=== PATIENT | male | born 1945 | race Caucasian/White ===

== ENCOUNTER 2019-03-07 20:44 | Emergency (ER) | payer OTHER ==
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
== END 2019-03-07 21:50 | disposition home or self-care (01) ==
LOC: ER 20:44
DX: T24.231A Burn of second degree of right lower leg, initial encounter (principal); X16.XXXA Contact with hot heating appliances, radiators and pipes, initial encounter; I10 Essential (primary) hypertension

== ENCOUNTER 2019-06-27 17:16 | Emergency (ER) | payer OTHER ==
--- OUTSIDE RECORDS SUMMARY | 2019-06-27 17:18 | XMS REPORT ---
:1945 [facility] Address [address] [place] [address] [place] [id number] Care Team Providers Name Role Phone Unavailable Unavailable Unavailable Problems This patient has no known problems. Allergies, Adverse Reactions, Alerts This patient has no known allergies or adverse reactions. Medications This patient has no known medications. Encounters Start End Encounter Admission Attending Care Care Encounter Date/Time Date/Time Type Type Clinicians Facility Department ID 2019-06-15 Outpatient [facility] [id number] 14:43:47 2019-05-17 2019-05-17 Inpatient E [facility]SE MED [id number] 13:44:00 09:27:00 2019-03-13 2019-03-13 Emergency E [facility]NE MHNE [id number] 10:59:00 10:59:00
[2019-06-27] MEDS ORDERED: NA CHLORIDE 0.9% 2,000 ML ONE (18:07)
[2019-06-27 18:25] LABS: Absolute Lymphocytes (CBC) 0.4 K/uL (0.7-4.9); Basophils % 0.6 % (0-1.3); Hematocrit 33.6 % (39.6-49.0); Lymphocytes % 4.5 % (15.3-44.8); MPV 7.5 fL (7.6-11.3); RBC Red Blood Cell Count 3.91 M/uL (4.33-5.43)
[2019-06-27 18:32] LABS: Protime INR 1.26
--- NOTE | 2019-06-27 18:33 | EKG ---
Test Date: 2019-06-27 Test Time: 17:38:06 Correctional Corporal: MICHELLE MEASUREMENT RESULTS: Intervals: Rate: 135 WY: 136 QRSD: 68 QT: 292 QTc: 438 [place]: P: 53 WY: 136 QRS: 24 T: 44 INTERPRETIVE STATEMENTS: Sinus tachycardia Otherwise normal ECG No previous ECG available for comparison Electronically Signed On 06-27-19 18:32:45 [facility] by Nish Roland
[2019-06-27 18:42] LABS: ALT/SGPT 31 U/L (12-78); AST/SGOT 72 U/L (15-37); Alkaline Phosphatase 155 U/L (45-117); BUN Blood Urea Nitrogen 11 mg/dL (7-18); Bicarbonate 29 mmol/L (21-32); Bilirubin Total 2.1 mg/dL (0.2-1.0); CKMB Creatine Kinase MB 1.9 ng/mL (0.3-3.6); Creatine Phosphokinase 283 U/L (39-308); Glucose Level 117 mg/dL (74-106); Lipase 107 U/L (73-393); Potassium 3.1 mmol/L (3.5-5.1); Protein, Total 6.9 g/dL (6.4-8.2); Sodium Level 134 mmol/L (136-145); Troponin (Emerg Dept Use Only) < 0.02 ng/mL (0.0-0.045)
[2019-06-27 18:47] LABS: Urine Bacteria <20 /HPF (NONE SEEN); Urine Culture Reflex Order NOT NEEDED; Urine Mucus 1+ /HPF (NONE SEEN); Urine RBC <5 /HPF (NONE SEEN)
[2019-06-27] MEDS ORDERED: ACETAMINOPHEN 650MG/RECT SUPP PR ONE (18:55)
[2019-06-27 18:56] LABS: Urine Blood NEGATIVE (NEG); Urine Glucose NEGATIVE (NEG); Urine Protein NEGATIVE (NEG); Urine Specific Gravity 1.015 (1.005-1.030)
--- NOTE | 2019-06-27 19:05 | RAD REPORT ---
EXAM DESCRIPTION: Loretta Single View06/27/2019 6:07 pm CLINICAL HISTORY: fever COMPARISON: none FINDINGS: The lungs appear clear of acute infiltrate. The heart is normal size IMPRESSION: No acute abnormalities displayed
[2019-06-27 19:18] LABS: Blood Morphology Comment NOT SEEN (NOT SEEN); Platelet Estimate DECR; Urine White Blood Cell Casts OK
[2019-06-27] MEDS ORDERED: NA CHLORIDE 0.9% 250 ML ONE (19:31)
[2019-06-27] MEDS ORDERED: VANCOMYCIN 1 GM/VIAL ONE (19:31)
[2019-06-27] MEDS ORDERED: CEFEPIME 1 GM/100 ML BAG IV ONE (19:31)
--- NOTE | 2019-06-27 19:41 | RAD REPORT ---
EXAM DESCRIPTION: CT - Head Brain Wo Cont - 06/27/2019 7:18 pm CLINICAL HISTORY: Alteration of awareness/confusion COMPARISON: None TECHNIQUE: Computed axial tomography of the head was obtained. IV contrast was not requested. All CT scans are performed using dose optimization technique as appropriate and may include automated exposure control or mA/KV adjustment according to patient size. FINDINGS: An intracranial bleed is not seen . The ventricles are normal in caliber. No extra-axial fluid collection is noted. . Fluid within the sinuses/ mastoids is not seen. IMPRESSION: No acute intracranial abnormality is seen. If patient's symptoms persist MRI of the bra in would be recommended.
--- NOTE | 2019-06-27 23:43 | ER ---
Nurse's Notes [facility] Name: Suleiman Mendoza Age: 73 yrs Sex: Male : 1945 Arrival Date: 06/27/2019 Time: 17:33 Bed 16 Private MD: Diagnosis: Other specified sepsis;Pneumonia due to other specified bacteria;Alcoholic cirrhosis of liver with ascites;Altered mental status, unspecified Presentation: 06/27 17:33 Presenting complaint: EMS states: AMS. Transition of care: patient was not received bp from another setting of care. Onset of symptoms is unknown. Risk Assessment: Do you want to hurt yourself or someone else? Patient reports no desire to harm self or others. Initial Sepsis Screen: Does the patient meet any 2 criteria? Temp <36.0*C (96.8*F)) or > 38.3*C (100.9*F). Altered Mental Status. HR > 90 bpm. Yes Does the patient have a suspected source of infection? Yes: Acute abdominal pain. Care prior to arrival: IV initiated. 20 GA, in the right antecubital area, Glucose check: 135 Oxygen administered. via nasal cannula. 17:33 Method Of Arrival: EMS: [facility] bp 17:33 Acuity: [facility] 2 bp Triage Assessment: 17:35 General: Appears distressed, comfortable, unkempt, Behavior is flat, quiet. Pain: bp Unable to use pain scale. Does not appear to understand pain scale. EENT: No deficits noted. Neuro: Level of Consciousness is confused, Oriented to none. Cardiovascular: Rhythm is sinus tachycardia. Respiratory: No deficits noted. GI: Abdomen is noted to have ascites. : No signs and/or symptoms were reported regarding the genitourinary system. Derm: No deficits noted. Musculoskeletal: No deficits noted. Historical: - Allergies: 17:35 No Known Allergies; bp - PMHx: 17:35 Hypertension; ruptured disk in back; Cirrhosis; bp - Immunization history:: Adult Immunizations unknown. - Social history:: Smoking status: unknown Patient/guardian denies using alcohol, street drugs, The patient lives with family. - Ebola Screening: : No symptoms or risks identified at this time. - Family history:: not pertinent. Screenin:44 Abuse screen: Denies threats or abuse. Denies injuries from another. Nutritional bp screening: No deficits noted. Tuberculosis screening: No symptoms or risk factors identified. Fall Risk None identified. Assessment: 17:35 General: SEE TRIAGE. bp 17:44 Reassessment: CODE SEPSIS ACTIVATED. bp 18:26 Reassessment: PT STRAIGHT CATHED WITHOUT INCIDENT, PT TOLERATED WELL. bp 19:15 Reassessment: Patient appears in no apparent distress at this time. Neuro: Level of lp1 Consciousness is awake, confused, Oriented to none. Cardiovascular: Patient's skin is warm and dry. GI: Abdomen is noted to have ascites. : No signs and/or symptoms were reported regarding the genitourinary system. 20:19 Reassessment: Patient appears in no apparent distress at this time. Patient answering lp1 questions appropriately at this time; family at bedside Patient states symptoms have improved. Neuro: Level of Consciousness is awake, obeys commands, Oriented to person, place. Cardiovascular: Patient's skin is warm and dry. Respiratory: Respiratory effort is even, unlabored. Derm: Skin is fragile, is thin, Skin is dry, Skin is jaundiced. 20:50 Reassessment: Patient appears in no apparent distress at this time. Patient returned lp1 from CT at this time. 21:20 Reassessment: Patient attempting to get out of bed at this time, stating wanting to go lp1 home; calmed down, encouraged to stay in bed; Family at bedside; lights turned out for comfort. 21:35 Reassessment: Patient given ice chips at this time. lp1 22:38 Reassessment: Patient appears in no apparent distress at this time. family at bedside, fu diaper changed, socks provided. 06/28 00:00 Reassessment: Patient appears in no apparent distress at this time. No changes from fu previously documented assessment. 01:00 Reassessment: Patient appears in no apparent distress at this time. No changes from fu previously documented assessment. patient for transfer to [facility]. patient updated on the need for transfer. 01:45 Reassessment: patient resting quitely in bed, awaiting for ambulance . fu Vital Signs: 06/27 17:35 BP 160 / 139; Pulse 138; Resp 21; Temp 102.1; Pulse Ox 100% ; Weight 72.57 kg; bp 17:45 BP 140 / 75; Pulse 132; Resp 18; Pulse Ox 94% on R/A; bp 18:26 BP 137 / 61; Pulse 116; Resp 18; Pulse Ox 96% ; bp 19:00 BP 116 / 65; Pulse 129; Resp 17; Temp 101.8(R); Pulse Ox 97% on R/A; lp1 19:30 BP 106 / 79; Pulse 126; Resp 20; Pulse Ox 97% on R/A; lp1 20:00 BP 112 / 57; Pulse 125; Resp 14; Pulse Ox 97% on R/A; lp1 21:00 Temp 99.8(O); lp1 21:30 BP 135 / 70; Pulse 120; Resp 19; Pulse Ox 96% on R/A; lp1 22:30 BP 119 / 83; Pulse 115; Resp 17; Pulse Ox 98% ; Pain 0/10; fu 23:30 BP 115 / 46; Pulse 108; Resp 18; Pulse Ox 95% ; Pain 0/10; fu 06/28 01:00 BP 110 / 44; Pulse 107; Resp 18; Temp 97.9; Pulse Ox 99% ; Pain 0/10; fu 01:38 BP 113 / 73; Pulse 107; Pulse Ox 95% ; Pain 0/10; fu Chris Coma Score: 06/27 20:00 Eye Response: spontaneous(4). Verbal Response: oriented(5). Motor Response: obeys lp1 commands(6). Total: 15. 21:00 Eye Response: spontaneous(4). Verbal Response: confused(4). Motor Response: obeys lp1 commands(6). Total: 14. ED Course: 17:33 Patient arrived in ED. bp 17:35 Triage completed. bp 17:35 Arm band placed on. bp 17:35 Maintain EMS IV. Dressing intact. Good blood return noted. Site clean \T\ dry. Gauge \T\ bp site: 20 G R AC. 17:43 Stanton Lawton, RN is Primary Nurse. bp 17:44 Patient has correct armband on for positive identification. Bed in low position. Call bp light in reach. Side rails up X2. Adult w/ patient. 18:08 Chest Single View XRAY In Process Unspecified. EDMS 18:25 Straight cath inserted, using sterile technique, 16 Fr. Specimen obtained. bp 18:48 Shashi Pineda PA is PHCP. jmm 18:48 Juan Stanley MD is Attending Physician. [facility] 19:01 ammonia drawn by pr and sent to lab. 3 19:10 Primary Nurse role handed off by Stanton Lawton, MOHAN bp 19:18 CT Head Brain wo Cont In Process Unspecified. EDMS 19:26 Leta Blanchard, RN is Primary Nurse. lp1 19:56 Shashi Pineda PA is PHCP. m 20:21 No provider procedures requiring assistance completed. lp1 20:45 CT Chest, Abdomen, Pelvis - W/Contrast In Process Unspecified. EDMS 22:26 Flu Sent. lp1 22:30 blood sample for lactate obtained and sent to lab. fu 23:21 Attending Physician role handed off by Juan Stanley MD [facility] 23:21 Almas Ahmadi MD is Attending Physician. [facility] 11 01:15 Patient transferred, IV remains in place. fu Administered Medications: 06/27 18:01 Drug: NS 0.9% (30 ml/kg) 30 ml/kg Route: IV; Rate: bolus; Site: right antecubital; bp 18:52 CANCELLED (Physician Discretion; rOUTE CHANGE): Tylenol 650 mg PO once bp 19:08 Drug: Tylenol Suppository 650 mg Route: WA; bp 20:30 Follow up: Response: Temperature is decreased lp1 19:35 Drug: Cefepime 1 grams Route: IVPB; Rate: 200 ml/hr; Infused Over: 30 mins; Site: right lp1 antecubital; 20:10 Follow up: IV Status: Completed infusion; IV Intake: 100ml lp1 20:15 Drug: vancoMYCIN 1 grams Route: IVPB; Infused Over: 2 hrs; Site: right antecubital; lp1 Intake: 20:10 IV: 100ml; Total: 100ml. lp1 Outcome: 23:42 ER care complete, transfer ordered by . tw4 06/28 01:20 Transferred to [facility]. fu Transferred Note: Report called to Buzz Mejias RN Condition: stable Instructed on the need for transfer. 01:59 Patient left the ED. fu Signatures: Dispatcher [employer] EDMS Shashi Pineda PA PA [facility] Leta Blanchard, RN RN 1 Sharonda Bustos 3 Nahum Blanca RN Stanton Emery, RN Juan Orosco MD MD ma2 Almas Ahmadi MD MD tw4 Corrections: (The following items were deleted from the chart) 01:22 01:19 IV is patent, kailash linder
--- NOTE | 2019-06-27 23:43 | EDPHYS ---
Physician Documentation [facility] Name: Suleiman Mendoza Age: 73 yrs Sex: Male : 1945 Arrival Date: 06/27/2019 Time: 17:33 Bed 16 Private MD: ED Physician Almas Ahmadi HPI: 06/27 19:10 This 73 yrs old Male presents to ER via EMS with complaints of Altered Mental ma2 Status. 19:10 The patient presents with confusion. Onset: The symptoms/episode began/occurred ma2 gradually, 1 day(s) ago. Possible causes: sepsis. Associated signs and symptoms: Pertinent positives: fever, Pertinent negatives: ataxia, confusion, diarrhea. Patient's baseline: Neuro: alert and fully oriented. The patient has experienced a previous episode. Historical: - Allergies: 17:35 No Known Allergies; bp - PMHx: 17:35 Hypertension; ruptured disk in back; Cirrhosis; bp - Immunization history:: Adult Immunizations unknown. - Social history:: Smoking status: unknown Patient/guardian denies using alcohol, street drugs, The patient lives with family. - Ebola Screening: : No symptoms or risks identified at this time. - Family history:: not pertinent. ROS: 19:11 Unable to obtain ROS due to altered mental status. ma2 Exam: 19:10 Constitutional: This is a well developed, well nourished patient who is awake, alert, ma2 and in no acute distress. Head/Face: Normocephalic, atraumatic. ENT: Nares patent. No nasal discharge, no septal abnormalities noted. Tympanic membranes are normal and external auditory canals are clear. Oropharynx with no redness, swelling, or masses, exudates, or evidence of obstruction, uvula midline. Mucous membranes moist. Chest/axilla: Normal chest wall appearance and motion. Nontender with no deformity. No lesions are appreciated. Cardiovascular: Regular rate and rhythm with a normal S1 and S2. No gallops, murmurs, or rubs. Normal PMI, no JVD. No pulse deficits. Respiratory: Lungs have equal breath sounds bilaterally, clear to auscultation and percussion. No rales, rhonchi or wheezes noted. No increased work of breathing, no retractions or nasal flaring. Abdomen/GI: Soft, non-tender, with normal bowel sounds. No distension or tympany. No guarding or rebound. No evidence of tenderness throughout. Back: No spinal tenderness. No costovertebral tenderness. Full range of motion. MS/ Extremity: Pulses equal, no cyanosis. Neurovascular intact. Full, normal range of motion. Neuro: samnolent yet, arousable to verbal stimulus, GCS 14, oriented to person, place, time, and situation. Cranial nerves II-XII grossly intact. Motor strength 5/5 in all extremities. Sensory grossly intact. Cerebellar exam normal. Normal gait. Vital Signs: 17:35 BP 160 / 139; Pulse 138; Resp 21; Temp 102.1; Pulse Ox 100% ; Weight 72.57 kg; bp 17:45 BP 140 / 75; Pulse 132; Resp 18; Pulse Ox 94% on R/A; bp 18:26 BP 137 / 61; Pulse 116; Resp 18; Pulse Ox 96% ; bp 19:00 BP 116 / 65; Pulse 129; Resp 17; Temp 101.8(R); Pulse Ox 97% on R/A; lp1 19:30 BP 106 / 79; Pulse 126; Resp 20; Pulse Ox 97% on R/A; lp1 20:00 BP 112 / 57; Pulse 125; Resp 14; Pulse Ox 97% on R/A; lp1 21:00 Temp 99.8(O); lp1 21:30 BP 135 / 70; Pulse 120; Resp 19; Pulse Ox 96% on R/A; lp1 22:30 BP 119 / 83; Pulse 115; Resp 17; Pulse Ox 98% ; Pain 0/10; fu 23:30 BP 115 / 46; Pulse 108; Resp 18; Pulse Ox 95% ; Pain 0/10; fu 06/28 01:00 BP 110 / 44; Pulse 107; Resp 18; Temp 97.9; Pulse Ox 99% ; Pain 0/10; fu 01:38 BP 113 / 73; Pulse 107; Pulse Ox 95% ; Pain 0/10; fu Reading Coma Score: 06/27 20:00 Eye Response: spontaneous(4). Verbal Response: oriented(5). Motor Response: obeys lp1 commands(6). Total: 15. 21:00 Eye Response: spontaneous(4). Verbal Response: confused(4). Motor Response: obeys lp1 commands(6). Total: 14. MDM: 19:02 Patient medically screened. ma2 19:10 Differential Diagnosis: electrolyte abnormality, alcohol intoxication, hypoglycemia, ma2 intracranial bleed, pneumonia, sepsis, volume depletion. 23:19 Data reviewed: vital signs, nurses notes. Transition of care: After a detail discussion jose of the patient's case, care is transferred to Almas Ahmadi MD. 06/27 17:49 Order name: Basic Metabolic Panel; Complete Time: 18:45 bp 06/27 17:49 Order name: Blood Culture Adult (2) bp 06/27 17:49 Order name: CBC with Diff; Complete Time: 19:54 bp 06/27 17:49 Order name: Ckmb; Complete Time: 18:45 bp 06/27 17:49 Order name: CPK; Complete Time: 18:45 bp 06/27 17:49 Order name: Lactate; Complete Time: 18:45 bp 06/27 17:49 Order name: LFT's; Complete Time: 18:45 bp 06/27 17:49 Order name: Lipase; Complete Time: 18:45 bp 06/27 17:49 Order name: Procalcitonin; Complete Time: 19:54 bp 06/27 17:49 Order name: Ptt, Activated; Complete Time: 18:45 bp 06/27 17:49 Order name: Troponin (emerg Dept Use Only); Complete Time: 18:45 bp 06/27 17:49 Order name: Urine Microscopic Only; Complete Time: 19:01 bp 06/27 18:13 Order name: Protime (+INR); Complete Time: 18:45 EDMS 06/27 17:49 Order name: Cath; Complete Time: 18:25 bp 06/27 17:49 Order name: Chest Single View XRAY; Complete Time: 19:54 bp 06/27 18:02 Order name: EKG Electrocardiogram EDMS 06/27 18:49 Order name: AMMONIA; Complete Time: 19:54 jmm 06/27 18:54 Order name: Urine Dipstick--Ancillary (enter results); Complete Time: 19:01 bd 06/27 19:03 Order name: CT Head Brain wo Cont; Complete Time: 19:54 ma2 06/27 19:19 Order name: CBC Smear Scan; Complete Time: 19:54 EDMS 06/27 19:59 Order name: Flu ma2 06/27 20:00 Order name: Influenza Screen (A ; Complete Time: 21:48 EDMS 06/27 20:18 Order name: CT Chest, Abdomen, Pelvis - W/Contrast [facility] 06/27 23:02 Order name: Lactate Sepsis 2 HR Follow-up; Complete Time: 23:10 EDMS 06/27 17:49 Order name: Accucheck; Complete Time: 18:03 bp 06/27 17:49 Order name: Cardiac monitoring; Complete Time: 18:03 bp 06/27 17:50 Order name: EKG - Nurse/Tech; Complete Time: 18:02 bp 06/27 17:50 Order name: IV Saline Lock - Large Bore; Complete Time: 18:02 bp 06/27 17:50 Order name: Labs collected and sent; Complete Time: 18:02 bp 06/27 17:50 Order name: O2 Per Protocol; Complete Time: 18:01 bp 06/27 17:50 Order name: O2 Sat Monitoring; Complete Time: 18:01 bp 06/27 17:50 Order name: Urine Dipstick-Ancillary (obtain specimen); Complete Time: 18:25 bp Administered Medications: 18:01 Drug: NS 0.9% (30 ml/kg) 30 ml/kg Route: IV; Rate: bolus; Site: right antecubital; bp 18:52 CANCELLED (Physician Discretion; rOUTE CHANGE): Tylenol 650 mg PO once bp 19:08 Drug: Tylenol Suppository 650 mg Route: [place]; bp 20:30 Follow up: Response: Temperature is decreased lp1 19:35 Drug: Cefepime 1 grams Route: IVPB; Rate: 200 ml/hr; Infused Over: 30 mins; Site: right lp1 antecubital; 20:10 Follow up: IV Status: Completed infusion; IV Intake: 100ml lp1 20:15 Drug: vancoMYCIN 1 grams Route: IVPB; Infused Over: 2 hrs; Site: right antecubital; lp1 Disposition: 06/28 05:17 Co-signature as Attending Physician, Almas Ahmadi MD I agree with the assessment and tw4 plan of care. Disposition: 06/27/19 23:42 Transfer ordered to [facility]. Diagnosis are Other specified sepsis, Pneumonia due to other specified bacteria, Alcoholic cirrhosis of liver with ascites, Altered mental status, unspecified. - Reason for transfer: Higher level of care. - Accepting physician is DR Mark. - Condition is Stable. - Problem is an ongoing problem. - Symptoms are unchanged. Signatures: Dispatcher [employer] EDAL Shashi Pineda PA PA Leta Ang, RN RN lp1 Nahum Blanca, RN RN Stanton Lange, RN RN bp Juan Stanley MD MD ma2 Almas Ahmadi MD MD tw4 Corrections: (The following items were deleted from the chart) 06/27 18:13 17:51 PROTIME (+INR)+[id number].BRZ ordered. EDAL EDAL 18:52 18:48 Tylenol 650 mg PO once ordered. [facility] 06/28 01:59 06/27 23:42 06/27/2019 23:42 Transfer ordered to [facility]. fu Diagnosis is Other specified sepsis; Pneumonia due to other specified bacteria; Alcoholic cirrhosis of liver with ascites; Altered mental status, unspecified. Reason for transfer: Higher level of care. Accepting physician is DR Mark. Condition is Stable. Problem is an ongoing problem. Symptoms are unchanged. tw4
[2019-06-28 05:33] VITALS: TEMP 97.9
[2019-06-28 05:34] VITALS: BP 113/73; O2SAT 95
--- NOTE | 2019-06-28 10:40 | RAD REPORT ---
EXAM DESCRIPTION: CT - Chest Abdomen Pelvis W Cont - 06/28/2019 3:26 am CLINICAL HISTORY: Fever. TECHNIQUE: CT scan of the chest, abdomen and pelvis was performed with oral and intravenous contrast . 5 mm axial images were obtained along with coronal and sagittal reformatted images. DOSE OPTIMIZATION: This facility uses dose optimization techniques as appropriate to perform exams, including at least one of the following techniques: 1. Automated exposure control. 2. Adjustment of the mA and/or kV according to patient size (this includes techniques or standardized protocols for targeted exams where dose is matched to the indication/reason for exam, i.e. extremiti es or head). 3. Use of iterative reconstructive technique. INTRAVENOUS CONTRAST: Not documented. Please refer to medical record. COMPARISON: None. FINDINGS: Lung [place]: There is a moderate sized infiltrate in the left lower lobe. There is mild dependent atelectasis bilaterally. Mediastinal Structures: There is atherosclerosis of the thoracic aorta. There is evidence of coronary arterial disease. There is no significant pericardial effusion. There is no adenopathy. Pleural Space: There are small bilateral pleural effusions. Axillae: Normal. Chest Wall: Normal. Liver: There is evidence of hepatic cirrhosis. There is a partially calcified cyst in the superior aspect of the right hepatic lobe which measures 2 .3 cm. There is severe intrahepatic biliary ductal dilatation. The common duct obstruction should be conside red. Spleen: Normal. Pancreas: Normal. Gallbladder: There is evidence of cholelithiasis. Adrenal Glands: Normal. Kidneys: There are small cortical cysts bilaterally. Retroperitoneal Structures: There is extensive atherosclerotic disease about the abdominal aorta and iliofemoral arteries. There is fusiform aneurysmal dilatation of the distal abdominal aorta which measures 3.7 x 4.1 cm. Bowel Survey: There is increased stool throughout the colon. The distal ileum is unremarkable. The appendix is unremarkable. Prostate Gland: Normal in size. Urinary Bladder: Normal. Peritoneal Cavity: There is a large amount of peritoneal fluid. Mesenteric Structures: Normal. Abdominal Wall: No hernia. Bony Structures: No suspicious lesions. IMPRESSION: 1. There is a moderate-sized infiltrate in the left lower lobe. 2. Hepatic cirrhosis. 3. Severe intrahepatic bile duct dilatation. The common duct obstruction should be considered. 4. Cholelithiasis. 5. Increased stool throughout the colon. 6. Extensive atherosclerotic disease. 7. Fusiform aneurysm of the distal abdominal aorta. 8. Large retroperitoneal ascites. Electronically signed by: Doug Mccain MD 06/27/2019 9:18 PM SUPERVISOR STATEMENT CLERKS Due to temporary technical issues with the PACS/Fluency reporting system, reports are being signed by the in house radiologist as a courtesy to ensure prompt reporting. The interpreting radiologist is f ully responsible for the content of the report.
== END 2019-06-28 01:59 | disposition short-term general hospital (02) ==
LOC: ER 17:16
DX: A41.89 Other specified sepsis (principal); J15.8 Pneumonia due to other specified bacteria; K70.31 Alcoholic cirrhosis of liver with ascites; I10 Essential (primary) hypertension
CPT/HCPCS: 96365; 93005; 87040 ×2; 85025; 80048; 36415; 82140; 82550; 85610; 80076; 83605 ×2; 85730; 84484; 82553; 83690; 84145; 87804 ×2; 70450; 71260; 74177; 71045; 51702; 96375; 99285; Q9967; J0692; J7030 ×2; 81003; 81015